=== PATIENT | female | born 2005 | race Caucasian/White ===

== ENCOUNTER → 2023-07-26 10:47 | Outpatient (REF) | payer OTHER, SELFPAY | LOC: HWRAD 10:47 | PROVIDERS: ATTENDING PHYSICIAN Nurse Practitioner Pediatrics; FAMILY PHYSICIAN Pediatrics | DX: K59.00 Constipation, unspecified (principal) | CPT/HCPCS: 74018 ==

== ENCOUNTER 2024-10-21 15:23 | Emergency (ER) | payer OTHER, SELFPAY ==
[2024-10-21 15:27] VITALS: BP 127/78
[2024-10-21] MEDS: MOTRIN 400 MG PO (18:31)
--- NOTE | 2024-10-21 19:26 | ED.GENMED ---
History of Present Illness
General
Chief Complaint: Fall
Source: patient and family
Time Seen by Provider: 10/21/24 18:04
History of Present Illness
History of Present Illness:
19-year-old female with past medical history of cerebral palsy and seizures presenting to the emergency department for evaluation after she was sitting on her mother's lap and excellently fell to the ground striking her left side of the head, left
shoulder and left foot. Parents were concerned because patient seemed to be a little bit sleepy following the event and had some repetitive questioning but they note by the time they got to the emergency department the symptoms all resolved. There
was no reported loss of consciousness, vomiting, visual changes, abnormal bruising, light sensitivity or noise sensitivity, neck pain or stiffness or any other concerns other than the after mentioned musculoskeletal injuries. Parents both state
patient is now back to her normal baseline. Patient states her main concern is some pain to the distal aspect of her left foot.
Past History
Past History
ED Past Medical History: Seizures and Other (Cerebral palsy)
ED Past Surgical History: None
Social History
Tobacco: Non-smoker
Alcohol: None
Drug: None
Personal: Single
Living: with family
Employment: Disabled
Review of Systems
Review of Systems
All Other Systems: ROS reviewed and negative except as documented in HPI and ROS
Phy Exam
Physical Exam
Physical Exam:
GENERAL: Alert , in no apparent distress
HEAD: Small contusion to the left frontotemporal region
EYE: pupils equal and reactive, clear conjunctiva
NECK: Supple, no midline tenderness
ENT: o/p clr, mmm. No postauricular ecchymosis/Coy sign, no hemotympanum. No intraoral lacerations, no dental injuries
CARDIAC: Regular rate and rhythm .
LUNGS: Clear breath sounds bilaterally, no acute respiratory distress, no wheezes/rales/rhonchi
NEUROLOGICAL: Alert and oriented, no focal neuro deficits
SKIN: Warm and dry, skin intact.
MUSCULOSKELETAL: Mild edema dorsum of left foot intact and equal pulses bilateral, well perfused.
PSYCH: Normal and appropriate interaction.
Scores
Heart Failure Risk
Heart Failure Risk Score: Not Applicable
Heart Score for Chest Pain Patients
STEMI patient?: Not applicable
Withdrawal Assessment of Alcohol
Withdrawal Assessment Completed?: Not applicable
Course
Orders/Labs/Results
Orders:
Orders
10/21/24 18:27
Ibuprofen [Motrin] 400 mg PO NOW STA
CR Ankle - Left Min 3 Views Urgent
Comment:
Reason For Exam: fall, pain, hx of cerebral palsy
CR Foot - Left Min 3 Views Urgent
Comment:
Reason For Exam: fall, pain, hx of cerebral palsy
Vital Signs
Initial and Last Documented VS:
Initial Vital Signs
Temp Pulse Resp BP Pulse Ox
98.8 F 109 18 127/78 98
10/21/24 15:27 10/21/24 15:27 10/21/24 15:27 10/21/24 15:27 10/21/24 15:27
Last Documented Vital Signs
Temp Pulse Resp BP Pulse Ox
98.8 F 109 18 127/78 98
10/21/24 15:27 10/21/24 15:27 10/21/24 15:27 10/21/24 15:27 10/21/24 19:27
MDM/Problems Addressed
Differential Diagnosis Includes:
Concussion
contusion
Intracranial bleeding
Calvarial fracture
Sprain
fracture
MDM/Problems Addressed:
19-year-old female, wheelchair-bound, presents to the ER after she excellently fell off her mother's lap resulting in left-sided head injury, left shoulder injury and left foot injury. Symptoms prior to arrival were concerning to parents however
they note that she has back to her baseline and overall very well-appearing. We discussed risk versus benefit of CT imaging, family feels comfortable foregoing CT. Patient would like x-ray of her foot/ankle. Will also dose Motrin here.
Anticipate discharge home.
*Radiology
Radiology exam reviewed: preliminary read by ED provider (No acute fracture)
*Pulse Oximetry
SaO2: 98
Oxygen Mode of Delivery: Room air
Patient hypoxic: no
*Critical Care Note
Total Time (30-74mins, 75-104mins- exclusive of procedures): Not Applicable
Patient Management
Escalation/DeEscalation of care consider admission/obs:
Patient and family both feel comfortable going home. Aware of return precautions to the ER. Motrin/Tylenol as needed.
ED Attending Note
-
Portions of this chart may have been created with voice recognition software.� Occasional wrong word or��sound alike� substitutions may have occurred due to the inherent limitations of voice recognition software.
Discharge Plan
Departure
Patient Disposition: Home (Routine Discharge)
Date of Disposition: 10/21/24
Time of Disposition: 19:26
Patient with high blood pressure during this ER visit?: No
Discharge Problem:
Accidental fall, Contusion of head, Foot pain, left
Instructions: Head Injury in Adults (DC)
Referrals:
Gurpreet Rahman DO [Family Provider, Pediatrics]
Discharge Date and Time
Print Language: BULGARIAN
== END 2024-10-21 19:39 | disposition home or self-care (01) ==
LOC: EMR 15:23
PROVIDERS: EMERGENCY PHYSICIAN Student in an Organized Health Care Education/Training Program; FAMILY PHYSICIAN Pediatrics
DX: S00.93XA Contusion of unspecified part of head, initial encounter (principal); M79.672 Pain in left foot; G80.8 Other cerebral palsy; Z99.3 Dependence on wheelchair; W17.89XA Other fall from one level to another, initial encounter
CPT/HCPCS: 99283; 73610; 73630